=== PATIENT | female | born 1985 | race Caucasian/White ===

== ENCOUNTER 2018-09-06 19:30 | Observation (INO) | payer MEDICAID ==
[2018-09-06] MEDS ORDERED: MORPHINE SULFATE 10 MG/ML VIAL IVP ONE (20:01)
--- NOTE | 2018-09-06 20:10 | Emergency Department Record ---
History of Present Illness - General Chief complaint: Abscess Stated complaint: DENTAL ABCESS Time Seen by Provider: 09/06/18 19:56 Source: Patient Mode of Arrival: Ambulatory Limitations: No limitations - History of Present Illness Initial comments: 33 yo female presents with redness and swelling and pain of the right lower abdominal area. She was seen in the [facility] on Thursday. She started bactrim but she is not better. The area involved is the right suprapubic area where she shaves. complaint: Abscess/boil, Other Onset/Timin -: Days(s) Hx Tetanus Toxoid Vaccination: Yes Patient Tetanus UTD (within 5 yrs): Yes Location: Generalized (abdomen) Severity: Moderate Severity scale (1-10): 8 Consistency: Constant Improves with: None Worsens with: None Context: Other Associated symptoms: Denies other symptoms Treatments Prior to Arrival: Antibiotic - Related Data Home Medications Medication Instructions Recorded Confirmed Last Taken Acetaminop W/ Codeine 300/30Mg 1 tab PO Q6H 09/06/18 09/06/18 Unknown [Tylenol #3] Sulfamethoxazole/Trimethoprim 1 each PO BID 09/06/18 09/06/18 Unknown [Bactrim 400-80 mg Tablet] Allergies Allergy/AdvReac Type Severity Reaction Status Date / Time erythromycin base Allergy ANAPHYLAXIS Verified 09/06/18 19:48 [From Erythrocin] Penicillins Allergy ANAPHYLAXIS Verified 09/06/18 19:48 Travel Screening - Travel/Exposure Within Last 30 Days Have you traveled within the last 30 days?: No - Travel/Exposure Within Last Year Have you traveled outside the [place] in the last year?: No - Additonal Travel Details Have you been exposed to anyone with a communicable illness?: No - Travel Symptoms Symptom Screening: None Review of Systems Constitutional: Reports: Chills. Denies: Fever, Malaise, Weakness Eyes: Denies: Eye discharge ENT: Denies: Congestion, Throat pain Respiratory: Denies: Cough, Dyspnea Cardiovascular: Denies: Chest pain, Palpitations, Syncope Endocrine: Denies: Fatigue, Polydipsia, Polyuria Gastrointestinal: Reports: As per HPI, Abdominal pain. Denies: Diarrhea, Nausea , Vomiting Genitourinary: Denies: Dysuria, Urgency Musculoskeletal: Denies: Arthralgia, Back pain, Myalgia Skin: Denies: Bruising, Change in color, Rash Neurological: Denies: Headache Psychiatric: Denies: Anxiety Hematological/Lymphatic: Denies: Blood Clots, Easy bleeding, Easy bruising Past Medical History - SOCIAL HISTORY Smoking Status: Never smoker Alcohol Use: Rare Drug Use: None - RESPIRATORY Hx Respiratory Disorders: No - CARDIOVASCULAR Hx Cardio Disorders: No - NEURO Hx Neuro Disorders: No - GI Hx GI Disorders: Yes Hx Reflux: Yes Hx Irritable Bowel: Yes - Hx Genitourinary Disorders: Yes Hx UTI: Yes - ENDOCRINE Hx Endocrine Disorders: No - MUSCULOSKELETAL Hx Musculoskeletal Disorders: No - PSYCH Hx Psych Problems: Yes Hx Anxiety: Yes Hx Depression: Yes Comment:: ptsd - HEMATOLOGY/ONCOLOGY Hx Hematology/Oncology Disorders: No Family Medical History Any Significant Family History?: No Physical Exam - General General Appearance: Alert, Oriented x3, Cooperative, No acute distress Limitations: No limitations - Head Head exam: Atraumatic, Normal inspection - Eye Eye exam: Normal appearance. negative: Conjunctival injection, Scleral icterus - ENT ENT exam: Normal exam Ear exam: Normal external inspection Nasal Exam: Normal inspection Mouth exam: Normal external inspection - Neck Neck exam: Normal inspection - Respiratory Respiratory exam: Normal lung sounds bilaterally. negative: Respiratory distress - Cardiovascular Cardiovascular Exam: Regular rate, Normal rhythm, Normal heart sounds - GI/Abdominal GI/Abdominal exam: Soft, Tenderness (Tender with mild swelling and erythema of the right suprapubic area) - Extremities Extremities exam: Normal inspection Image of Full Body: 1 - erythema, tenderness, mild swelling - Back Back exam: Reports: Normal inspection - Neurological Neurological exam: Alert, Oriented X3 - Psychiatric Psychiatric exam: Normal affect, Normal mood - Skin Skin exam: Erythema Course Vital Signs 09/06/18 19:51 Temperature 98.8 F Pulse Rate [ 108 H Pulse Ox Probe] Respiratory 22 Rate Blood Pressure 119/67 [Left Arm] Pulse Ox 100 - Reevaluation(s) Reevaluation #1: 09/06/18 20:42 No acute changes on the CBC 09/06/18 20:43 Normal renal function on BMP 09/06/18 21:[address] scan was reviewed. There is an area in the right lower abdomen consistent with cellulitis. There is no organized drainable abscess. I recommend admission for IV antibiotics Medical Decision Making - Lab Data Result diagrams: 09/06/18 20:25 09/06/18 20:25 Disposition Disposition: Admit Clinical Impression: Cellulitis Qualifiers: Site of cellulitis: unspecified site Qualified Code(s): L03.90 - Cellulitis, unspecified Disposition: Still a Patient at [facility] Decision to Admit: Admit from ER Decision to Admit Date: 09/06/18 Decision to Admit Time: 22:30 Condition: (2) Stable Time of Disposition: 22:30 Quality - Quality Measures Quality Measures: N/A - Blood Pressure Screening Does Patient Have Any of the Following: No Blood Pressure Classification: Normal BP Reading Systolic Measurement: 111 Diastolic Measurement: 69 Screening for High Blood Pressure: < Normal BP, F/U Not Required > [G8783]
[2018-09-06] MEDS ORDERED: CEFAZOLIN 2 Gram 2 GM/50 ML BAG IVPB ONE (20:24)
[2018-09-06 20:34] LABS: BASO % 0.2 % (0-6); EOS % 1.1 % (0-6); GRAN % 76.9 % (47-80); HEMATOCRIT 36.4 % (35.0-47.0); LYMPH % 14.1 % (16-45); MEAN CELL VOLUME 84.8 fl (81-97); MEAN PLATELET VOLUME 9.8 fl (7.4-10.4); MONO % 7.7 % (0-9); PLATELET COUNT 298 K/uL (130-400); RED BLOOD COUNT 4.29 M/uL (3.80-5.40); RED CELL DISTRIBUTION WIDTH 13.5 % (11.5-14.5)
[2018-09-06 20:41] LABS: BLOOD UREA NITROGEN 7 mg/dL (6-20); CREATININE 0.6 mg/dL (0.5-0.9); EST GLOMERULAR FILTRATION RATE > 60 mL/min
[2018-09-06 20:44] LABS: GLUCOSE,RANDOM 87 mg/dL (74-109)
[2018-09-06] MEDS ORDERED: SOD CHLOR 0.9% WITH KCL 40MEQ 40 MEQ/1,000 ML IV.SOLN IV ONE (20:52)
[2018-09-06] MEDS ORDERED: KETOROLAC 30 MG/ML VIAL IVP PRN (22:45)
[2018-09-06] MEDS ORDERED: IBUPROFEN 600 MG TABLET PO PRN (22:45)
[2018-09-06] MEDS ORDERED: ACETAMINOPHEN 325 MG TAB PO PRN (22:45)
[2018-09-06] MEDS: MORPHINE SULFATE 10 MG/ML VIAL IVP SCH (23:01)
[2018-09-06] MEDS: CEFAZOLIN 2 Gram 2 GM/50 ML BAG IVPB SCH (23:01)
[2018-09-06] MEDS: POTASSIUM CHL 20MEQ IN 1L NS 20 MEQ/1,000 ML BAG IV SCH (23:02)
[2018-09-06] MEDS: TMP/SMZ 160MG/800MG TAB PO SCH (23:31)
[2018-09-07] MEDS: MORPHINE SULFATE 10 MG/ML VIAL IVP SCH ×4 (00:48→06:10)
[2018-09-07] MEDS: POTASSIUM CHL 20MEQ IN 1L NS 20 MEQ/1,000 ML BAG IV SCH ×2 (04:37→15:31)
--- NOTE | 2018-09-07 05:21 | CT SCAN REPORT ---
EXAM: CT OF THE ABDOMEN AND PELVIS WITH CONTRAST HISTORY: INFLAMMATORY PROCESS OF LOWER ABDOMINAL WALL. EVALUATE FOR ABSCESS. TECHNIQUE: Contrast enhanced helical CT examination of the abdomen and pelvis was performed including delayed images through the kidneys with 80 ml of Omnipaque 300 utilized. Oral contrast was not utilized limiting evaluation of bowel. Comparison: None. FINDINGS: There is minimal dependent atelectasis within the right lung base. The lung bases are otherwise clear and there is no pleural or pericardial effusion. The heart is not enlarged. The liver, spleen, pancreas, adrenal glands, and kidneys are without suspicious focal abnormality. The gallbladder is unremarkable. No gross biliary ductal dilatation is seen. No definite intraabdominal nor retroperitoneal lymphadenopathy though evaluation is limited by a paucity of intraabdominal and retroperitoneal fat. The vasculature is normal in appearance. No intrapelvic mass, lymphadenopathy, or free pelvic fluid. The uterus is retroflexed though otherwise normal in appearance. No intrinsic urinary bladder abnormality is seen. There is a large amount of stool throughout a nondilated colon. No gross bowel dilatation nor bowel wall thickening. The appendix is at least partially visualized and normal in appearance. There is skin thickening and subcutaneous fat stranding within the suprapubic lower abdominal wall slightly more pronounced on the right. There are reactive right inguinal/common femoral lymph nodes. The edema right of midline does appear somewhat confluent though no drainable abscess is seen. No lytic or blastic bone lesion. IMPRESSION: 1. FINDINGS SUSPICIOUS FOR MODERATE CELLULITIS WITHIN THE SUPRAPUBIC LOWER ABDOMINAL WALL ASYMMETRIC TO THE RIGHT. WHILE THE EDEMA IS SOMEWHAT CONFLUENT RIGHT OF MIDLINE, THERE IS NO EVIDENCE OF DRAINABLE ABSCESS. THERE ARE REACTIVE LYMPH NODES IN THE RIGHT INGUINAL/COMMON FEMORAL REGION. 2. NO EVIDENCE OF AN ACUTE INTRAABDOMINAL NOR INTRAPELVIC PROCESS. 3. RETROFLEXED UTERUS. 4. MODERATE TO LARGE AMOUNT OF STOOL THROUGHOUT THE COLON. JOB NUMBER: [id number] [facility]
[2018-09-07] MEDS: CEFAZOLIN 2 Gram 2 GM/50 ML BAG IVPB SCH ×3 (06:12→22:09)
[2018-09-07 06:49] LABS: BASO % 0.2 % (0-6); EOS % 2.1 % (0-6); GRAN % 62.6 % (47-80); HEMATOCRIT 34.8 % (35.0-47.0); HEMOGLOBIN 11.1 gm/dl (11.6-16.0); LYMPH % 20.7 % (16-45); MEAN CELL VOLUME 85.9 fl (81-97); MEAN CORPUSCULAR HEMOGLOBIN 27.4 pg (27-33); MEAN CORPUSCULAR HGB CONC 31.9 g/dl (32-36); MONO % 14.4 % (0-9); PLATELET COUNT 298 K/uL (130-400); RED BLOOD COUNT 4.05 M/uL (3.80-5.40); RED CELL DISTRIBUTION WIDTH 13.5 % (11.5-14.5); WHITE BLOOD COUNT W/O DIFF 6.2 K/uL (4.2-12.2)
[2018-09-07 07:05] LABS: BLOOD UREA NITROGEN 6 mg/dL (6-20); C-REACTIVE PROTEIN 8.26 mg/dL (<0.5); CREATININE 0.6 mg/dL (0.5-0.9); EST GLOMERULAR FILTRATION RATE > 60 mL/min; GLUCOSE,RANDOM 93 mg/dL (74-109)
[2018-09-07] MEDS ORDERED: MORPHINE SULFATE 10 MG/ML VIAL IVP SCH (09:00)
[2018-09-07] MEDS: ENOXAPARIN 40 MG/0.4 ML SYR SC SCH (09:34)
[2018-09-07] MEDS: TMP/SMZ 160MG/800MG TAB PO SCH ×2 (09:34→22:09)
--- NOTE | 2018-09-07 11:32 | History & Physical ---
History of Present Illness - Date of Service Date of Service for History & Physical: 09/07/18 - History of Present Illness Admitting Diagnosis: Cellulitis History of Present Illness: 33 yo female presents for cellulitis from "ingrown hair" s/p dry shaving with "dull" razor. Pt reports this as a regular habit. Was seen in an Urgent care over the weekend, given Bactrim and T3 with worsening of redness, swelling and pain. PMH unknown. 09/06/18 Pt presents to [facility] ER for lower abd abscess x 4 days. Failing outpt tx of bactrim. WBC 9, Hgb 12, Hct 36, Plt 298 Na 141, K 2.9, Cl 100, BUN 7, Cr 0.6, GFR>60, Glucose 87 98.8, HR 108, 119/67, RR 22, 100% RA, pain 8/ CT abd shows cellulitis with no sign of drainage abscess with lg amt of stool K was supplemented (repeat wnl), Continue bactrim and added Cefazolin 2gm Toradol 15mg IVP and Morphine 5mg IVp given in ER and ordered for floor use. Pt is tolerating general diet with no issues 09/07/18 -Pt resting in bed, mild/mod discomfort but no distress noted. Pt is tolerating PO intake, changing to motrin and tylenol judtih with norco for breakthrough. Abs remains red, warm, edematous with hypoactive BS x4. Erythema has receded from ER outline but still substantial. Continue IV ABX 1 more day, repeat labs in the AM. Bowel cleans ordered r/t CT results of lg amt stool and now on narcotics and risk of increased constipation present. Repeat labs AM MAPS reviewed, shows T3 recently from [place] provider. PCP unknown Travel Screening - Travel/Exposure Within Last 30 Days Have you traveled within the last 30 days?: No - Travel/Exposure Within Last Year Have you traveled outside the [place] in the last year?: No - Additonal Travel Details Have you been exposed to anyone with a communicable illness?: No - Travel Symptoms Symptom Screening: None Review of Systems Constitutional: Reports: Chills. Denies: Fever, Malaise, Weakness Eyes: Denies: Eye discharge ENT: Denies: Congestion, Throat pain Respiratory: Denies: Cough, Dyspnea Cardiovascular: Denies: Chest pain, Palpitations, Syncope Endocrine: Denies: Fatigue, Polydipsia, Polyuria Gastrointestinal: Reports: As per HPI, Abdominal pain. Denies: Diarrhea, Nausea , Vomiting Genitourinary: Denies: Dysuria, Urgency Musculoskeletal: Denies: Arthralgia, Back pain, Myalgia Skin: Denies: Bruising, Change in color, Rash Neurological: Denies: Headache Psychiatric: Denies: Anxiety Hematological/Lymphatic: Denies: Blood Clots, Easy bleeding, Easy bruising Past Medical History - SOCIAL HISTORY Smoking Status: Never smoker Alcohol Use: Rare Drug Use: None - RESPIRATORY Hx Respiratory Disorders: No - CARDIOVASCULAR Hx Cardio Disorders: No - NEURO Hx Neuro Disorders: No - GI Hx GI Disorders: Yes Hx Reflux: Yes Hx Irritable Bowel: Yes - Hx Genitourinary Disorders: Yes Hx UTI: Yes - ENDOCRINE Hx Endocrine Disorders: No - MUSCULOSKELETAL Hx Musculoskeletal Disorders: No - PSYCH Hx Psych Problems: Yes Hx Anxiety: Yes Hx Depression: Yes Comment:: ptsd - HEMATOLOGY/ONCOLOGY Hx Hematology/Oncology Disorders: No Family Medical History Any Significant Family History?: No H&P Meds/Allergies - Allergies Allergies: Allergies Allergy/AdvReac Type Severity Reaction Status Date / Time erythromycin base Allergy ANAPHYLAXIS Verified 09/06/18 19:48 [From Erythrocin] Penicillins Allergy ANAPHYLAXIS Verified 09/06/18 19:48 - Home Medications Home Medications Medication Instructions Recorded Confirmed Last Taken Acetaminop W/ Codeine 300/30Mg 1 tab PO Q6H 09/06/18 09/06/18 Unknown [Tylenol #3] Sulfamethoxazole/Trimethoprim 1 each PO BID 09/06/18 09/06/18 Unknown [Bactrim 400-80 mg Tablet] - Active Medications Active Medications: Current Medications Acetaminophen (Tylenol 325mg) 650 mg PO Q6HR [facility] Hydrocodone Bitart/Acetaminophen ([place] 5mg/325mg) 1 each PO Q6H PRN PRN Reason: PAIN - MOD TO SEVERE (5-10) Enoxaparin Sodium (Lovenox) 40 mg SC DAILY [facility] Last Admin: 09/07/18 09:34 Dose: 40 mg Cefazolin Sodium (Kefzol) 2 gm in 50 mls @ 100 mls/hr IVPB Q8H [facility] Stop: 09/12/18 06:01 Last Admin: 09/07/18 06:12 Dose: 100 mls/hr Potassium Chloride/Sodium Chloride ( Potassium Chl 20meq/) 20 meq in 1,000 mls @ 100 mls/hr IV Q10H [facility] Last Admin: 09/07/18 04:37 Dose: 100 mls/hr Ibuprofen (Motrin 600mg) 600 mg PO Q6H [facility] Polyethylene Glycol (Miralax) 17 gm PO BID [facility] Senna/Docusate Sodium (Senna Plus) 1 each PO BID [facility] Trimethoprim/Sulfamethoxazole (Bactrim Ds) 1 each PO BID [facility] Last Admin: 09/07/18 09:34 Dose: 1 each Physical Exam - Vital Signs Vital Signs: Vital Signs - Last 24 Hrs Temp Pulse Resp BP Pulse Ox 09/07/18 09:00 95 H 18 09/07/18 06:00 97.7 F 95 H 16 96/56 95 09/06/18 22:45 97.7 F 93 H 17 111/69 96 09/06/18 22:33 93 H 20 105/59 100 09/06/18 19:51 98.8 F 108 H 22 119/67 100 - General General Appearance: Alert, Oriented x3, Cooperative, No acute distress Limitations: No limitations - Head Head exam: Atraumatic, Normal inspection - Eye Eye exam: Normal appearance. negative: Conjunctival injection, Scleral icterus - ENT ENT exam: Normal exam Ear exam: Normal external inspection Nasal Exam: Normal inspection Mouth exam: Normal external inspection - Neck Neck exam: Normal inspection - Respiratory Respiratory exam: Normal lung sounds bilaterally. negative: Respiratory distress - Cardiovascular Cardiovascular Exam: Regular rate, Normal rhythm, Normal heart sounds Peripheral Pulses: 3+: Radial (R), Radial (L), Dorsalis Pedis (R), Dorsalis Pedis (L) - GI/Abdominal GI/Abdominal exam: Soft, Hypoactive bowel sounds, Tenderness (Tender with mild swelling and erythema of the right suprapubic area) - Rectal Rectal exam: Deferred - exam: Deferred - Extremities Extremities exam: Normal inspection - Back Back exam: Reports: Normal inspection - Neurological Neurological exam: Alert, Oriented X3 - Psychiatric Psychiatric exam: Normal affect, Normal mood - Skin Skin exam: Erythema, Warm Results - Labs Result Diagrams: 09/07/18 06:19 09/07/18 06:19 Labs Last 24 Hours: Laboratory Results - last 24 hr 0209/06/18 09/06/18 20:25 20:25 20:25 WBC 9.0 RBC 4.29 Hgb 12.0 Hct 36.4 MCV 84.8 MCH 28.0 MCHC 33.0 RDW 13.5 Plt Count 298 MPV 9.8 Gran % 76.9 Lymphocytes % 14.1 L Monocytes % 7.7 Eosinophils % 1.1 Basophils % 0.2 Sodium 141 Potassium 2.9 L* Chloride 100 Carbon Dioxide 29.0 Anion Gap 12.0 BUN 7 Creatinine 0.6 Estimated GFR > 60 Random Glucose 87 Calcium 9.1 C-Reactive Protein Serum HCG, Qual Negative 09/07/18 09/07/18 06:19 06:19 WBC 6.2 RBC 4.05 Hgb 11.1 L Hct 34.8 L MCV 85.9 MCH 27.4 MCHC 31.9 L RDW 13.5 Plt Count 298 MPV 10.0 Gran % 62.6 Lymphocytes % 20.7 Monocytes % 14.4 H Eosinophils % 2.1 Basophils % 0.2 Sodium 142 Potassium 3.7 Chloride 107 Carbon Dioxide 26.0 Anion Gap 9.0 BUN 6 Creatinine 0.6 Estimated GFR > 60 Random Glucose 93 Calcium 8.2 L C-Reactive Protein 8.26 H Serum HCG, Qual - Imaging and Cardiology CT scan - abdomen Status: Report reviewed VTE H&P Assessment - Risk for VTE Risk for VTE: Yes Risk Level: Moderate Risk Assessment Date: 09/07/18 Risk Assessment Time: 11:58 VTE Orders Placed or Will Be Placed: Yes Plan - Inpatient Certification Inpatient Certification: Admit to inpatient care: Based on my medical assessment, after consideration of patient's risk factors (age, co-morbidities and patient presenting symptoms and acuity), I expect that this patient will remain in the hospital greater than or equal to two midnights and that the services needed warrant inpatient care because: Patient Risk Factors: electrolyte imbalance, failed outpt tx, Estimated length of stay: The patient may reasonably be expected to be discharged or transferred to a hospital within 96 hours after admission to [facility]. Services needed: repeat labs, IV abx, IV K replacement Post hospital care (if known): [] I certify that my determination is in accordance with my understanding of Medicare requirements for reasonable and necessary inpatient services. 09/07/18 11:58 - Detailed Diagnosis and Plan (1) Cellulitis Current Visit: Yes Status: Acute Qualifiers: Site of cellulitis: unspecified site Qualified Code(s): L03.90 - Cellulitis , unspecified Base Code: L03.90 - CELLULITIS, UNSPECIFIED Comment: 09/07/18 -IV abx and PO -changed pain meds to PO, sched motrin/tylenol with norco for break through -repeat labs AM (2) DVT prophylaxis Current Visit: Yes Status: Acute Base Code: GSA5148 - Comment: 09/07/18 -lovenox 40mg SQ qd (3) Full code status Current Visit: Yes Status: Acute Base Code: Z78.9 - OTHER SPECIFIED HEALTH STATUS Comment: 09/07/18 -full code (4) Hypokalemia Current Visit: Yes Status: Acute Base Code: E87.6 - HYPOKALEMIA Comment: -IV K infusion started in ER, repeat K wnl -K 20 @ 100 d/c and repeat labs am (5) Constipation Current Visit: Yes Status: Acute Base Code: K59.00 - CONSTIPATION, UNSPECIFIED Comment: 09/07/18 -Ct ab shows lg amt stool, bowel cleanse ordered to move stool -
[2018-09-07] MEDS: POLYETHYLENE GLY 17 GM PACKET PO SCH ×2 (11:43→22:09)
[2018-09-07] MEDS: SENNOSIDES/DOCUSATE SODIUM UD CAPSULE PO SCH ×2 (11:44→22:09)
[2018-09-07] MEDS: HYDROCODONE/APAP 5/325MG TABLET PO PRN ×2 (11:45→17:30)
[2018-09-07] MEDS: IBUPROFEN 600 MG TABLET PO SCH ×2 (14:43→20:36)
[2018-09-07] MEDS: ACETAMINOPHEN 325 MG TAB PO SCH ×2 (14:43→20:37)
[2018-09-08] MEDS: IBUPROFEN 600 MG TABLET PO SCH ×2 (01:12→05:31)
[2018-09-08] MEDS: ACETAMINOPHEN 325 MG TAB PO SCH ×2 (01:12→05:30)
[2018-09-08] MEDS: CEFAZOLIN 2 Gram 2 GM/50 ML BAG IVPB SCH (05:23)
[2018-09-08 07:00] LABS: HEMATOCRIT 34.8 % (35.0-47.0); HEMOGLOBIN 10.8 gm/dl (11.6-16.0); MEAN CELL VOLUME 87.4 fl (81-97); MEAN CORPUSCULAR HEMOGLOBIN 27.1 pg (27-33); MEAN PLATELET VOLUME 9.8 fl (7.4-10.4); PLATELET COUNT 310 K/uL (130-400); RED BLOOD COUNT 3.98 M/uL (3.80-5.40); RED CELL DISTRIBUTION WIDTH 13.7 % (11.5-14.5); WHITE BLOOD COUNT W/O DIFF 3.7 K/uL (4.2-12.2)
[2018-09-08 07:20] LABS: BLOOD UREA NITROGEN 8 mg/dL (6-20); CREATININE 0.6 mg/dL (0.5-0.9); EST GLOMERULAR FILTRATION RATE > 60 mL/min; GLUCOSE,RANDOM 92 mg/dL (74-109)
[2018-09-08] MEDS: TMP/SMZ 160MG/800MG TAB PO SCH (09:40)
[2018-09-08] MEDS: POLYETHYLENE GLY 17 GM PACKET PO SCH (09:41)
[2018-09-08] MEDS: ENOXAPARIN 40 MG/0.4 ML SYR SC SCH (09:41)
[2018-09-08] MEDS: SENNOSIDES/DOCUSATE SODIUM UD CAPSULE PO SCH (09:41)
--- NOTE | 2018-09-08 10:59 | Discharge Summary ---
Providers Discharge Summary Date: 09/08/18 Date of admission: 09/06/18 22:34 Expected Date of Discharge: 09/08/18 Attending physician: SANTOS DUMONT Physical Exam - Vital Signs Vital Signs: Vital Signs - Last 24 Hrs Temp Pulse Resp BP Pulse Ox 09/08/18 09:00 85 16 09/08/18 06:00 97.7 F 85 16 96/56 97 09/07/18 22:00 97.9 F 87 18 96/53 97 09/07/18 20:55 91 H 16 09/07/18 14:00 98.0 F 91 H 16 88/47 96 - General General Appearance: Alert, Oriented x3, Cooperative, No acute distress Limitations: No limitations - Head Head exam: Atraumatic, Normal inspection - Eye Eye exam: Normal appearance. negative: Conjunctival injection, Scleral icterus - ENT ENT exam: Normal exam Ear exam: Normal external inspection Nasal Exam: Normal inspection Mouth exam: Normal external inspection - Neck Neck exam: Normal inspection - Respiratory Respiratory exam: Normal lung sounds bilaterally. negative: Respiratory distress - Cardiovascular Cardiovascular Exam: Regular rate, Normal rhythm, Normal heart sounds Peripheral Pulses: 3+: Radial (R), Radial (L), Dorsalis Pedis (R), Dorsalis Pedis (L) - GI/Abdominal GI/Abdominal exam: Soft, Hypoactive bowel sounds, Tenderness (Tender with mild swelling and erythema of the right suprapubic area) - Rectal Rectal exam: Deferred - exam: Deferred - Extremities Extremities exam: Normal inspection - Back Back exam: Reports: Normal inspection - Neurological Neurological exam: Alert, Oriented X3 - Psychiatric Psychiatric exam: Normal affect, Normal mood - Skin Skin exam: Erythema, Warm Hospitalization - Hospitalization Admission Diagnosis: Cellulitis - Problem List/Discharge Diagnosis (1) Cellulitis Current Visit: Yes Status: Acute Discharge Diagnosis: Site of cellulitis: unspecified site Qualified Code(s): L03.90 - Cellulitis , unspecified Base Code: L03.90 - CELLULITIS, UNSPECIFIED Comment: 09/07/18 -IV abx and PO -changed pain meds to PO, sched motrin/tylenol with norco for break through -repeat labs AM 09/08/18 -erythema and warmth have decreased -pain improved, tolerating PO meds -pt to continue bactrim and adding cefdinir (pt has several other small sores on dorothea legs and arm) -f/u within 1 week of d/c with PCP (2) DVT prophylaxis Current Visit: Yes Status: Acute Base Code: [id number] - Comment: 09/07/18 -lovenox 40mg SQ qd (3) Full code status Current Visit: Yes Status: Acute Base Code: Z78.9 - OTHER SPECIFIED HEALTH STATUS Comment: 09/07/18 -full code (4) Hypokalemia Current Visit: Yes Status: Acute Base Code: E87.6 - HYPOKALEMIA Comment: -IV K infusion started in ER, repeat K wnl -K 20 @ 100 d/c and repeat labs am 09/08/18 -K normal after IV infusion stopped (5) Constipation Current Visit: Yes Status: Acute Base Code: K59.00 - CONSTIPATION, UNSPECIFIED Comment: 09/07/18 -Ct ab shows lg amt stool, bowel cleanse ordered to move stool - - Hospitalization Course Disposition: Home, Self-Care Hospital Course: 33 yo female presents for cellulitis from "ingrown hair" s/p dry shaving with "dull" razor. Pt reports this as a regular habit. Was seen in an Urgent care over the weekend, given Bactrim and T3 with worsening of redness, swelling and pain. PMH unknown. 09/06/18 Pt presents to [facility] ER for lower abd abscess x 4 days. Failing outpt tx of bactrim. WBC 9, Hgb 12, Hct 36, Plt 298 Na 141, K 2.9, Cl 100, BUN 7, Cr 0.6, GFR>60, Glucose 87 98.8, HR 108, 119/67, RR 22, 100% RA, pain 8/10 CT abd shows cellulitis with no sign of drainage abscess with lg amt of stool K was supplemented (repeat wnl), Continue bactrim and added Cefazolin 2gm Toradol 15mg IVP and Morphine 5mg IVp given in ER and ordered for floor use. Pt is tolerating general diet with no issues 09/07/18 -Pt resting in bed, mild/mod discomfort but no distress noted. Pt is tolerating PO intake, changing to motrin and tylenol judith with norco for breakthrough. Abs remains red, warm, edematous with hypoactive BS x4. Erythema has receded from ER outline but still substantial. Continue IV ABX 1 more day, repeat labs in the AM. Bowel cleans ordered r/t CT results of lg amt stool and now on narcotics and risk of increased constipation present. Repeat labs AM MAPS reviewed, shows T3 recently from [place] provider. PCP unknown Procedures: Imaging and X-Rays 09/06/18 20:14 ABDOMEN/PELVIS W CONTRAST [CT] Stat Abnormal Labs: Abnormal Lab Results 09/06/18 09/06/18 09/07/18 Range/Units 20:25 20:25 06:19 WBC (4.2-12.2) K/uL Hgb 11.1 L (11.6-16.0) gm/dl Hct 34.8 L (35.0-47.0) % MCHC 31.9 L (32-36) g/dl Lymphocytes % 14.1 L (16-45) % Monocytes % 14.4 H (0-9) % Monocytes (0-9) % Potassium 2.9 L* (3.4-4.5) mmol/L Calcium (8.6-10.0) mg/dL C-Reactive Protein (<0.5) mg/dL 09/07/18 09/08/18 09/08/18 Range/Units 06:19 06:24 06:24 WBC 3.7 L (4.2-12.2) K/uL Hgb 10.8 L (11.6-16.0) gm/dl Hct 34.8 L (35.0-47.0) % MCHC 31.0 L (32-36) g/dl Lymphocytes % (16-45) % Monocytes % (0-9) % Monocytes 12.0 H (0-9) % Potassium (3.4-4.5) mmol/L Calcium 8.2 L 8.5 L (8.6-10.0) mg/dL C-Reactive Protein 8.26 H (<0.5) mg/dL Condition at Discharge: (2) Stable Discharge Medications - Discharge Medications Prescriptions: Sulfamethoxazole/Trimethoprim [Bactrim] 1 each PO BID #14 tab Home Medications: Ambulatory Orders Acetaminop W/ Codeine 300/30Mg [Tylenol with Codeine #3] 1 tab PO Q6H 02/18/19 [ Last Taken Unknown] Acetaminophen [Tylenol 325Mg] 650 mg PO Q6HR tablet 09/08/18 [Last Taken Unknown] Ibuprofen [Motrin 600Mg] 600 mg PO Q6HR tablet 09/08/18 [Last Taken Unknown] Polyethylene Glycol 3350 [Miralax] 17 gm PO BID packet 09/08/18 [Last Taken Unknown] Sennosides/Docusate Sodium [Senna Plus] 1 each PO BID capsule 09/08/18 [Last Taken Unknown] Sulfamethoxazole/Trimethoprim [Bactrim] 1 each PO BID #14 tab 09/08/18 [Last Taken Unknown] Discharge Plan - Discharge Instructions Activity at Discharge: Increase Activity as Tolerated Diet at Discharge: Regular Diet Additional Instructions: Continue Bactrim and Cefdinir Plenty of fluids Watch for an increase in redness, warmth, fevers or general ill feeling. if so seek immediate medical care For future use, please avoid razor use and try electric razors for personal hygiene Quality Measures - Quality Measures Quality Measures: Documentation of Current Medications in Medical Record, Screening for High Blood Pressure and F/U Documented - Current Medications Quality Measure: Measure #130: Documentation of Current Medications - Blood Pressure Screening Quality Measure: Screening for High Blood Pressure and Follow-Up Documented Blood Pressure Classification: Normal BP Reading Systolic Measurement: 96 Diastolic Measurement: 56 Screening for High Blood Pressure: < Normal BP, F/U Not Required > [G8783] - Elder Abuse Suspicion Index EASI Reference Information: Curt FENTON, Asher C, Larry D, Efrain Vieira.Development and validation of a tool to assist physicians identification of elder abuse: The Elder Abuse Suspicion Index (EASI ). Journal of Elder Abuse and Neglect, 2008; 20 (3): 276-300.
== END 2018-09-08 12:55 | disposition home or self-care (01) ==
LOC: ER 19:30 → INTOOBSV 22:34 → MEDSURG 22:34
PROVIDERS: ADMIT Internal Medicine; ATTEND Internal Medicine
DX: E87.6 Hypokalemia (principal); K59.00 Constipation, unspecified; K21.9 Gastro-esophageal reflux disease without esophagitis; K58.9 Irritable bowel syndrome, unspecified
CPT/HCPCS: 99285 ×2; 96365; 96366; 96375; 85025 ×2; 86140; 80048 ×3; 84703; 85027; 74177; G0378 ×3; Q9967; J1885; J0690 ×3; J3490 ×3; J2270 ×2; 99217; 99220; J1650